=== PATIENT | female | born 1970 | race Caucasian/White ===

== ENCOUNTER 2019-02-08 09:12 | Outpatient (RCR) | payer BC ==
[2019-01-29 07:35] VITALS: BP 119/82
[2019-01-29] MEDS: IRON SUCROSE 200 MG/10 ML (VENOFER) VIAL IV SCH (08:38)
[2019-02-01 07:50] VITALS: BP 127/68
[2019-02-01] MEDS: IRON SUCROSE 200 MG/10 ML (VENOFER) VIAL IV SCH (07:58)
[2019-02-04 08:00] VITALS: BP 127/72
[2019-02-04] MEDS: IRON SUCROSE 200 MG/10 ML (VENOFER) VIAL IV SCH (08:08)
[2019-02-06] MEDS: IRON SUCROSE 200 MG/10 ML (VENOFER) VIAL IV SCH (08:43)
[2019-02-06 09:15] VITALS: BP 121/72
[~2019-02-08] VITALS: Ht 168 cm; Wt 69.0 kg
[2019-02-08 09:15] VITALS: BP 117/74
[2019-02-08] MEDS: IRON SUCROSE 200 MG/10 ML (VENOFER) VIAL IV SCH (09:17)
== END 2019-02-08 09:55 | disposition home or self-care (01) ==
LOC: SDC 09:12
PROVIDERS: ATTEND Internal Medicine
DX: D50.9 Iron deficiency anemia, unspecified (principal)
CPT/HCPCS: 96365; 96374

== ENCOUNTER 2020-03-04 08:01 | Outpatient (RCR) | payer BC ==
[2020-02-24] MEDS: IRON SUCROSE 200 MG/10 ML (VENOFER) VIAL IV SCH (08:23)
[2020-02-24 09:19] VITALS: BP 106/74
[2020-02-26] MEDS: IRON SUCROSE 200 MG/10 ML (VENOFER) VIAL IV SCH (15:49)
[2020-02-26 15:50] VITALS: BP 109/78
[2020-02-28] MEDS: IRON SUCROSE 200 MG/10 ML (VENOFER) VIAL IV SCH (15:27)
[2020-02-28 15:30] VITALS: BP 122/78
--- NOTE | 2020-02-28 15:50 | NUR ---
PATIENT'S VENOFER COMPLETED. IV FLUSHED AND DC'D. PATIENT SDC VIA AMBULATORY, UNACCOMPANIED. PATIENT TO RETURN Monday AT 0730.
[2020-03-02] MEDS: IRON SUCROSE 200 MG/10 ML (VENOFER) VIAL IV SCH (07:46)
[2020-03-02 07:55] VITALS: BP 127/80
[~2020-03-04] VITALS: Ht 167.7 cm; Wt 67000.0 kg
[~2020-03-04 08:01] MED LIST: IRON SUCROSE 200 MG/10 ML (VENOFER) VIAL IV ONE
[2020-03-04] MEDS ORDERED: IRON SUCROSE 200 MG/10 ML (VENOFER) VIAL IV ONE (08:39)
[2020-03-04] MEDS: IRON SUCROSE 200 MG/10 ML (VENOFER) VIAL IV SCH (08:50)
[2020-03-04 09:13] VITALS: BP 106/77
== END 2020-03-04 09:13 | disposition home or self-care (01) ==
LOC: SDC 08:01
PROVIDERS: ATTEND Internal Medicine
DX: D50.9 Iron deficiency anemia, unspecified (principal)
CPT/HCPCS: 96365

== ENCOUNTER 2023-01-04 06:14 | Outpatient (CLI) | payer BC ==
[~2023-01-04] VITALS: Ht 160 cm; Wt 69.5 kg
== END 2023-01-04 09:27 | disposition home or self-care (01) ==
LOC: PREOP 06:14
PROVIDERS: ATTEND Internal Medicine
DX: Z01.818 Encounter for other preprocedural examination (principal)

== ENCOUNTER 2023-01-06 07:10 | Day surgery (SDC) | payer BC ==
--- NOTE | 2023-01-05 06:35 | HISTORY AND PHYSICAL ---
COLONOSCOPY HISTORY AND PHYSICAL HISTORY OF PRESENT ILLNESS: The patient is a 52-year-old white female being set up for her first screening colonoscopy. She is deemed to be of average risk, now she is not aware of any family history for colon cancer. She denies bright red blood per rectum, abdominal pain, or bowel habit change. She does have some intermittent constipation. PAST MEDICAL HISTORY: Significant for hypertension for which she takes triamterene alone. PAST SURGICAL HISTORY: Significant for cholecystectomy number of years ago, total abdominal hysterectomy, also a number of years ago, and breast reduction surgery, hysterectomy was done for benign reasons. SOCIAL HISTORY: She works as a construction manager for an [employer] and has no past smoking history and occasional small volume alcohol intake. FAMILY HISTORY: Father living at the age of 83 with history of hypertension, diabetes and secondary chronic kidney disease. Mother has had several brain tumors removed living at the age of 76 with a history of hypertension and hyperlipidemia. REVIEW OF SYSTEMS: CONSTITUTIONAL: Denies night sweats, chills, fever or change in weight. PULMONARY: Denies cough, wheezing or shortness of breath. CARDIOVASCULAR: Denies chest pain, orthopnea, PND, pedal edema or syncope. GASTROINTESTINAL: As noted in the HPI. PHYSICAL EXAMINATION: GENERAL: Reveals a white female, appears to be in no acute distress. VITAL SIGNS: Weight 153 pounds, blood pressure 140/90. HEENT: Unremarkable. Sclerae nonicteric. CHEST: Clear to auscultation. CARDIOVASCULAR: Reveals regular rate and rhythm without murmur, S3, or S4. ABDOMEN: Soft, supple without mass, organomegaly, or tenderness. EXTREMITIES: Revealed no cyanosis, clubbing or edema. ASSESSMENT AND PLAN: The patient is being set up for screening colonoscopy. The procedure being done per the patient's request at [facility]. Prep instructions were given and questions were answered. I thank you for the referral of this pleasant lady. Job ID: [id number] DocumentID: [id number] Dictated Date: 01/02/2023 11:43:11 Retail Store Assistant Date: 01/02/2023 12:04:00 Dictated By: ARTEMIO GARCIA MD
[~2023-01-06] VITALS: Ht 160 cm; Wt 69.5 kg
[2023-01-06 07:30] VITALS: BP 155/85
[2023-01-06] MEDS: LACTATED RINGERS 1,000 ML 1,000 ML IV STA (07:30)
--- NOTE | 2023-01-06 07:55 | Pre-Op Note & Conscious Sedat ---
Pre-Operative Progress Note Date H&P Reviewed: Jan 06, 2023 Time H&P Reviewed: 07:54 History & Physical: H&P Reviewed, Patient Examed, No changes noted Pre-Op Diagnosis: screening Moderate Sedation PreProcedure ASA Score 2 Airway Lungs Heart ASA score ASA 1: a normal healthy patient ASA 2: a patient with a mild systemic disease (mid diabetes, controlled hypertension, obesity ASA 3: a patient with a severe systemic disease that limits activity (angina, COPD, prior Myocardial infarction) ASA 4: a patient with an incapacitating disease that is a constant threat to life (CHF, renal failure) ASA 5: a moribund patient not expected to survive 24 hrs. (ruptured aneurysm) ASA 6: a declared brain- patient whose organs are being harvested. For emergent operations, add the letter E after the classification Mallampati Classification Grade 2 Sedation Plan Analgesia, Amnesia, Plan communicated to team members, Discussed options with patient/fam, Discussed risks with patient/fam The patient is an appropriate candidate to undergo the planned procedure, sedation, and anesthesia. The patient immediately re-assessed prior to indication. ARTEMIO GARCIA MD Jan 06, 2023 07:55
--- NOTE | 2023-01-06 08:32 | Progress Note-Post Operative ---
Post-Procedure Note Physician (s)/Credit Support Counselor (s) Physician ARTEMIO GARCIA MD Pre-Procedure Diagnosis Pre-Procedure Diagnosis: screening Post-Procedure Diagnosis Post-operative diagnosis: Prior to undergoing colonoscopy digital rectal evaluation was performed. Anal suture tone was normal and the perianal reflexes intact. No abnormalities noted digital specks in anal canal or distal rectal vault. The colonoscope was then inserted into the rectum and under direct visualization advanced to the cecum. The cecum was identified by the indication of the ileocecal valve cecal strap and appendiceal orifice. Photographic documentation was obtained. Careful inspection was made as the colonoscope was withdrawn. Quality the prep was good. Findings: There are no evidence for internal or external hemorrhoids and the rectum was unremarkable. Present the rectosigmoid junction was pedunculated approximate 1.5 cm lobulated nonulcerated adenomatous appearing polyp. It was snared and removed in its entirety and submitted for histopathology. There was no subsequent blood loss. The sigmoid colon descending colon splenic flexure transverse colon hepatic flexure ascending colon and cecum were unremarkable with no other areas of neoplasia or diverticular disease being identified. A/P 1. 1 proximal 1.5 cm adenomatous pedunculated polyp was removed via snare ligation from the rectosigmoid junction with an otherwise normal colonoscopy to the cecum. We will advocate repeat surveillance colonoscopy in 1 year provided there is no evidence for malignancy on histopathology. Due to patient request the procedure was done at [facility]. There are abnormalities noted on today's Colonoscopy. CC: Dr. Ji Tijerina DO. ARTEMIO GARCIA MD Jan 06, 2023 08:32
--- NOTE | 2023-01-06 08:33 | Anesthesia-General Post-Op ---
MAC Patient Condition Mental Status/LOC: Same as Preop Cardiovascular: Satisfactory Nausea/Vomiting: Absent Respiratory: Satisfactory Pain: Controlled Complications: Absent Post Op Complications Complications None Follow Up Care/Instructions Patient Instructions None needed. Anesthesiology Discharge Order Discharge Order Patient is doing well, no complaints, stable vital signs, no apparent adverse anesthesia problems. No complications reported per nursing. NICOLASA LOWE CRNA Jan 06, 2023 08:33
[2023-01-06 08:35] VITALS: BP 100/62
[2023-01-06 08:40] VITALS: BP 155/85
[2023-01-06 09:30] VITALS: BP 155/85
== END 2023-01-06 09:30 | disposition home or self-care (01) ==
LOC: ENDO 07:10
PROVIDERS: ATTEND Internal Medicine
DX: Z12.11 Encounter for screening for malignant neoplasm of colon (principal); D12.8 Benign neoplasm of rectum; I10 Essential (primary) hypertension; Z79.899 Other long term (current) drug therapy
CPT/HCPCS: 88305